=== PATIENT | female | born 2000 | race Two or more races ===

== ENCOUNTER 2023-05-29 22:14 | Emergency (ER) | payer OTHER ==
[~2023-05-29] VITALS: Ht 144.8 cm; Wt 50.8 kg
[2023-05-29] MEDS ORDERED: SYNTHROID50 MCG PO (22:27)
[2023-05-29] MEDS ORDERED: CLONAZEPAM1 MG PO (22:27)
== END 2023-05-30 00:02 | disposition home or self-care (01) ==
LOC: ER 22:14
DX: N92.3 Ovulation bleeding (principal)

== ENCOUNTER 2023-09-22 16:55 | Emergency (ER) | payer OTHER ==
[~2023-09-22] VITALS: Ht 144.8 cm; Wt 49.9 kg
[~2023-09-22 16:55] MED LIST: CLONAZEPAM1 MG PO; SYNTHROID50 MCG PO
[2023-09-22 22:05] LABS: HEMATOCRIT 41.6 % (36.0-45.00); HEMOGLOBIN 13.9 g/dL (12.0-15.00); MEAN CELL VOLUME 89.2 fL (80.00-100.00); MEAN CORPUSCULAR HEMOGLOBIN 29.9 pg (27.00-32.0); MEAN CORPUSCULAR HGB CONC 33.5 g/dl (32.0-36.0); PLATELET COUNT 230 K/uL (150-450); RED BLOOD COUNT 4.66 M/uL (4.00-6.00); RED CELL DISTRIBUTION WIDTH 12.6 % (11.5-14.5)
[2023-09-22 22:07] LABS: PH,URINE 5.5 (5.0-8.0); URINE APPEARANCE Clear; URINE BILIRRUBIN Negative (NEGATIVE); URINE BLOOD Negative; URINE COLOR Yellow; URINE GLUCOSE Negative (NEGATIVE); URINE LEUKOCYTE Trace; URINE NITRATE Negative; URINE PROTEIN Negative (NEGATIVE); URINE UROBILINOGEN 0.2 E.U./dl
[2023-09-22 22:08] LABS: URINE BACTERIA 61.7 uL (0.0-1933); URINE EPITHELIAL CELLS 10.1 uL (0.0-38.8); URINE RBC 4.5 uL (0.0-20.8); URINE WBC 7.5 uL (0.0-23.2)
[2023-09-22 22:41] LABS: ALBUMIN 3.8 gm/dL (3.4-5.0); BILIRUBIN TOTAL 0.27 mg/dL (0.3-1.2); CALCIUM 9.3 mg/dL (8.5-10.1); CREATININE SERUM 0.6 mg/dL (0.55-1.02); GFR 122.82; POTASSIUM 4.76 mEq/L (3.5-5.1); TOTAL PROTEIN 7.8 gm/dL (6.4-8.2)
== END 2023-09-23 00:25 | disposition home or self-care (01) ==
LOC: ER 16:55
PROVIDERS: General Practice
DX: O26.899 Other specified pregnancy related conditions, unspecified trimester (principal); Z3A.00 Weeks of gestation of pregnancy not specified; J02.9 Acute pharyngitis, unspecified; Z20.822 Contact with and (suspected) exposure to COVID-19